=== PATIENT | female | born 1935 ===

== ENCOUNTER 2018-07-15 08:05 | Day surgery (SDC) | payer MEDICARE, OTHER ==
[2018-07-15] MEDS ORDERED: Propofol 10 mg/ml Inj (20 ML) ONE ×2 (10:32→11:00)
[2018-07-15] MEDS ORDERED: Lactated Ringer's 500 ML IV ONE (10:35)
[2018-07-15 11:25] VITALS: TEMP 97.3
[2018-07-15 11:55] VITALS: O2SAT 100
[2018-07-15 12:28] VITALS: BP 111/67; PULSE 69; RESP 14
== END 2018-07-15 12:15 | disposition home or self-care (01) ==
LOC: C.ENDO 08:05
PROVIDERS: ATTEND Internal Medicine Gastroenterology
DX: Z12.11 Encounter for screening for malignant neoplasm of colon (principal); D12.2 Benign neoplasm of ascending colon; D12.7 Benign neoplasm of rectosigmoid junction; K57.30 Diverticulosis of large intestine without perforation or abscess without bleeding; K64.8 Other hemorrhoids
CPT/HCPCS: 45385; 88305; J2704; J7120